=== PATIENT | female | born 2000 | race Hispanic/Latino ===

== ENCOUNTER 2024-05-19 15:27 | Emergency (ER) | payer OTHER ==
[~2024-05-19] VITALS: Ht 165.1 cm; Wt 72.5 kg
[2024-05-19] VITALS (7 sets, daily range): BP systolic 109–132; BP diastolic 66–84
[2024-05-19] MEDS ORDERED: KETOROLAC TROMETHAMINE 30 MG/ML SDV IV ONE (15:55)
[2024-05-19] MEDS ORDERED: ASPIRIN 81 MG/TAB PO ONE (15:55)
[2024-05-19 16:03] LABS: BASO% 0.4 % (0-3); EOS% 0.4 % (0-8); HEMATOCRIT 45.2 % (37.0-47.0); HEMOGLOBIN 14.9 g/dl (12.0-16.0); IMMATURE GRANULOCYTES 0.1 % (0.0-5.0); LYMPH% 25.6 % (15-41); MEAN CELL VOLUME 87.6 fL CALC (80.0-100.0); MEAN CORPUSCULAR HGB 28.9 pG CALC (26.0-32.0); MONO% 7.1 % (2-13); NEUT# 9.38 thou/uL (2.00-7.15); NEUT% 66.4 % (42-76); RED BLOOD COUNT 5.16 mill/uL (4.20-5.60)
[2024-05-19 16:17] LABS: BILIRUBIN, TOTAL 0.5 mg/dL (0.02-1.3); CREATININE 0.8 mg/dL (0.5-1.0); TOTAL PROTEIN 9.5 g/dL (6.3-8.2)
[2024-05-19] MEDS ORDERED: Iopamidol 370 (Isovue) 76% 100 ML SDV IV ONE (16:30)
[2024-05-19] MEDS ORDERED: VOLTAREN - GENE75 MG PO (19:25)
[2024-05-19] MEDS ORDERED: DICLOFENAC SODIUM 75 MG/TAB PO ONE (19:30)
== END 2024-05-19 20:09 | disposition home or self-care (01) | DRG 313 ==
LOC: ED 15:27
PROVIDERS: Family Medicine
DX: R07.89 Other chest pain (principal); E66.9 Obesity, unspecified
CPT/HCPCS: Q9967